=== PATIENT | male | born 1975 | race Caucasian/White ===

== ENCOUNTER 2022-10-21 21:48 | Emergency (ER) | payer OTHER, SELFPAY ==
[2022-10-21 21:56] VITALS: BP 132/74; PULSE 87; RESP 18; TEMP 36.9; O2SAT 99; BMI 27.1
--- NOTE | 2022-10-21 22:21 | ED.NURSE ---
Patient changed into scrubs and belonging inventoried by security. Patient in safe modified room and on camera visualization for safety.
--- NOTE | 2022-10-21 22:25 | ED.NURSE ---
Patient participating with DEC assessment.
[2022-10-21 22:45] LABS: Basophils Absolute Auto 0.02 K/uL (0.00-0.30); Basophils Percent Auto 0.3 % (0.0-3.0); Eosinophils Absolute Auto 0.03 K/uL (0.00-0.50); Eosinophils Percent Auto 0.4 % (0.0-7.0); Hemoglobin* 15.9 gm/dL (13.5-17.5); Immature Granulocytes Abs Auto 0.01 K/uL (0.00-0.30); Immature Granulocytes Pct Auto 0.1 %; Lymphocytes Absolute Auto 1.87 K/uL (0.90-2.90); Lymphocytes Percent Auto 25.5 % (20-44); Mean Corpuscular HGB Conc 35 gm/dL (32-36); Mean Corpuscular Hemoglobin 31 pg (26-34); Mean Corpuscular Volume 89 fL (80-100); Monocytes Percent Auto 8.2 % (0.0-11.0); Neutrophils Absolute Auto 4.79 K/uL (1.7-7.0); Neutrophils Percent Auto 65.5 % (42.0-72.0); Platelet Count* 248 K/uL (140-440); RDW Coefficient of Variation % 11.8 % (11.5-15.5); Red Blood Count 5.17 m/uL (4.30-5.90); White Blood Count* 7.32 K/uL (4.50-11.00)
[2022-10-21 22:48] LABS: Slide Review Reflex No
[2022-10-21 22:54] LABS: Albumin* 4.8 g/dL (3.3-5.0); Chloride* 96 mmol/L (96-114)
[2022-10-21 22:55] LABS: Potassium* 3.6 mmol/L (3.6-5.1); Sodium* 136 mmol/L (135-149)
[2022-10-21 22:57] LABS: Alkaline Phosphatase* 52 U/L (40-150); Aspartate Amino Transferase* 31 U/L (12-35); Bilirubin Total* 0.4 mg/dL (0.1-1.5); Carbon Dioxide* 27 mmol/L (20-32); Creatinine* 0.7 mg/dL (0.5-1.5); Est. Creatinine Clearance* 144.73; Estimated Glomerular Filt Rate 115 ml/min; Total Protein* 7.9 g/dL (6.0-8.3)
[2022-10-21 22:58] LABS: Alanine Aminotransferase* 24 U/L (4-50); Blood Urea Nitrogen* 3 mg/dL (5-24); Calcium* 8.6 mg/dL (8.4-10.6); Glucose* 104 mg/dL (60-115)
[2022-10-21 23:00] VITALS: O2SAT 96
[2022-10-21 23:00] LABS: Acetaminophen* < 10.0 ug/mL (10.0-30.0); Salicylate* < 1.0 mg/dL (1.0-10)
[2022-10-21 23:07] LABS: Ethanol* 0.33 % (0.01-0.03)
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
[2022-10-21] MEDS: LORazepam 2 MG/ML inj 1 MG IVP (23:50)
[2022-10-21] MEDS: FOLIC ACID 1 MG TABLET PO (23:50)
[2022-10-21] MEDS: 0.9 % SODIUM CHLORIDE 1000 ml 1,000 ML IV (23:50)
[2022-10-21] MEDS: THIAMINE 100 MG TABLET PO (23:50)
[2022-10-21] MEDS: MULTIVITAMIN/MINERALS 1 TABLET 1 TAB PO (23:50)
[2022-10-22 00:06] VITALS: BP 115/74; PULSE 94; RESP 18; TEMP 36.9; O2SAT 99
[2022-10-22] MEDS: 0.9 % SODIUM CHLORIDE 1000 ml 1,000 ML IV (00:15)
[2022-10-22] MEDS: NICOTINE 21 MG PATCH 1 PATCH TRANSDERMA (00:44)
[2022-10-22] MEDS: LORazepam 2 MG/ML inj 0.5 MG IVP (01:16)
[2022-10-22 01:40] LABS: Amphetamine Screen Urine Negative (Negative); Barbiturate Screen Urine Negative (Negative); Benzodiazepines Screen Urine Negative (Negative); Cocaine Screen Urine Negative (Negative); Methadone Screen Urine Negative (Negative); Methamphetamines Screen Urine Negative (Negative); Opiate Screen Urine Negative (Negative); Oxycodone Screen Urine Negative (Negative); Phencyclidine Screen Urine Negative (Negative); Tricyclic Antidepressant Urine Negative (Negative)
[2022-10-22 01:53] LABS: Cannabinoid Screen Urine POSITIVE (Negative)
[2022-10-22 04:28] VITALS: BP 123/69; PULSE 89; RESP 18; TEMP 36.9; O2SAT 99
[2022-10-22 08:04] LABS: Ethanol* 0.15 % (0.01-0.03)
[2022-10-22 08:41] VITALS: BP 130/98; PULSE 104; O2SAT 95
[2022-10-22] MEDS: LORazepam 0.5 MG TABLET PO (08:47)
[2022-10-22 11:41] LABS: Ethanol* 0.06 % (0.01-0.03)
[2022-10-22 13:10] VITALS: BP 132/103; PULSE 96; O2SAT 95
== END 2022-10-22 13:33 | disposition home or self-care (01) ==
PROVIDERS: Family Medicine; Student in an Organized Health Care Education/Training Program; Emergency Provider Family Medicine; PCP Nurse Practitioner Family
DX: R45.851 Suicidal ideations (principal); F43.10 Post-traumatic stress disorder, unspecified; F10.129 Alcohol abuse with intoxication, unspecified
CPT/HCPCS: 36415; 80053; 80143; 80179; 80306; 82077; 85025; 94761; 96374; 96376; 99284; A9153; A9270; J2060; J7030; S4990